=== PATIENT | male | born 1995 | race American Indian/Alaskan Native ===

== ENCOUNTER 2021-08-17 14:08 | Emergency (ER) | payer MEDICAID ==
--- NOTE | 2021-08-17 15:16 | Event Note ---
ED Screening Note Date of service: 08/17/21 Time: 15:12 ED Screening Note: 26-year-old male with a past medical history of schizophrenia was brought to the ER today by mom with concern that patient may be a harm to himself. Mom states that patient covered his entire body yesterday with [place] ago, then added brown sugar to his body and then sprayed his body metallic gold with a spray paint and then this morning she states that he was asking her to bring home brown spray paint so he could spread his body again. Also mom states that in the past 2 days patient has been adding bleach to his food which was witnessed by his sister and she states that over the past 4 months he has also been eating handfuls of baking soda. He states that patient has been having auditory hallucinations. She denies any SI. She states that patient has not been compliant with his psych meds. She states that he was on Invega IM, and the last time he had it was April 2021. She states that they recently moved to the area, and patient psychiatrist was in [place] and she states that it was difficult getting patient to the office for visits, and getting his meds and patient refused to do the virtual visits. Patient currently awake alert oriented x3, but he is delusional with loose associations. He does have global pain throughout his body especially his right shoulder, and what appears to be dried glue also on his body. This initial assessment/diagnostic orders/clinical plan/treatment(s) is/are subject to change based on patients health status, clinical progression and re- assessment by fellow clinical providers in the ED. Further treatment and workup at subsequent clinical providers discretion. Patient/guardian urged not to elope from the ED as their condition may be serious if not clinically assessed and managed. Initial orders include: Psych orders
[2021-08-17 16:27] LABS: Basophils % (Auto) 0.5 % (0.0-1.8); Eosinophils # (Auto) 0.1 K/mm3 (0.0-0.4); Hematocrit 42.6 % (35.5-45.6); Lymphocytes # (Auto) 2.3 K/mm3 (1.2-5.4); Lymphocytes % (Auto) 30.4 % (13.4-35.0); Mean Corpuscular HGB Conc 33 % (32-34); Mean Corpuscular Volume 89 fl (84-94); Monocytes # (Auto) 0.5 K/mm3 (0.0-0.8); Platelet Count 354 K/mm3 (140-440); Red Blood Count 4.79 M/mm3 (3.65-5.03)
[2021-08-17 16:45] LABS: BUN/Creatinine Ratio 19; Blood Urea Nitrogen 15 mg/dL (9-20); Calcium 9.8 mg/dL (8.4-10.2); Hemolysis Index 34
--- NOTE | 2021-08-17 19:20 | Emergency Department Report ---
ED Psych HPI - General Chief Complaint: Psych Stated Complaint: MIXED CHEMICALS STUCK ON SKIN/INGESTED BLEACH Time Seen by Provider: 08/17/21 15:49 Source: patient Mode of arrival: Ambulatory - History of Present Illness Initial Comments: Patient is a 26-year-old [place] male with a history of schizophrenia who is presenting with some abnormal behaviors last several days. Patient is responded auditory hallucinations. Mother states that he has covered several areas of his body with gorilla glue. Patient then sprayed pain in his right shoulder and upper arm with gold spray paint. He has been mixing bleach into his food. Mother is fearful that the patient is having a mental health crisis. Patient denies alcohol but states he is using marijuana and would like to stop. Patient is given no other rationale for putting the glue or paint on his body. - Related Data Home Medications Medication Instructions Recorded Confirmed Last Taken No Known Home Medications [No 08/18/21 08/18/21 Unknown Reported Home Medications] Allergies Allergy/AdvReac Type Severity Reaction Status Date / Time No Known Allergies Allergy Verified 08/17/21 14:20 ED Review of Systems ROS: Stated complaint: MIXED CHEMICALS STUCK ON SKIN/INGESTED BLEACH Other details as noted in HPI Comment: All other systems reviewed and negative ED Past Medical Hx - Past Medical History Previous Medical History?: Yes Hx Psychiatric Treatment: Yes (schizophrenia) - Surgical History Past Surgical History?: No - Medications Home Medications: Home Medications Medication Instructions Recorded Confirmed Last Taken Type No Known Home Medications [No 08/18/21 08/18/21 Unknown History Reported Home Medications] ED Physical Exam - General Limitations: No Limitations General appearance: alert, in no apparent distress - Head Head exam: Present: atraumatic, normocephalic - Eye Eye exam: Present: normal appearance - ENT ENT exam: Present: mucous membranes moist - Neck Neck exam: Present: normal inspection - Respiratory Respiratory exam: Present: normal lung sounds bilaterally. Absent: respiratory distress, wheezes, rales, rhonchi - Cardiovascular Cardiovascular Exam: Present: regular rate, normal rhythm. Absent: systolic murmur, diastolic murmur, rubs, gallop - GI/Abdominal GI/Abdominal exam: Present: soft, normal bowel sounds - Rectal Rectal exam: Present: deferred - Extremities Exam Extremities exam: Present: normal inspection - Back Exam Back exam: Present: normal inspection - Neurological Exam Neurological exam: Present: alert, oriented X3 - Psychiatric Psychiatric exam: Present: normal affect, normal mood - Skin Skin exam: Present: warm, dry, intact, normal color, other (Patient is has multiple areas of the body bilateral extremities is face and neck that have dried glue. Most of these areas are already flaking off. On his right shoulder the patient has some keloids already the covering this area is large amount of glue and gold spray pain. ). Absent: rash ED Course Vital Signs 08/17/21 08/17/21 08/17/21 14:23 17:25 20:11 Temperature 98.5 F 98.6 F 98.7 F Pulse Rate 118 H 68 101 H Respiratory 16 20 18 Rate Blood Pressure 130/64 Blood Pressure 132/60 124/68 [Right] O2 Sat by Pulse 97 100 98 Oximetry 08/18/21 08/18/21 08/18/21 01:45 02:07 08:36 Temperature 97.2 F L 97.7 F Pulse Rate 90 74 Respiratory 17 17 20 Rate Blood Pressure Blood Pressure 102/61 132/80 [Right] O2 Sat by Pulse 98 98 100 Oximetry 08/18/21 08/18/21 08/19/21 08:51 21:23 08:00 Temperature 98.3 F Pulse Rate 63 Respiratory 16 Rate Blood Pressure Blood Pressure 137/91 [Right] O2 Sat by Pulse 100 100 98 Oximetry 08/19/21 08/19/21 08/19/21 08:14 15:25 20:58 Temperature 98 F 97.4 F L Pulse Rate 68 98 H Respiratory 20 18 Rate Blood Pressure Blood Pressure 142/90 133/76 [Right] O2 Sat by Pulse 98 98 98 Oximetry ED Medical Decision Making - Lab Data Result diagrams: 08/17/21 15:51 08/17/21 15:51 Lab Results 08/17/21 08/17/21 08/17/21 Range/Units 15:51 15:51 15:51 WBC 7.6 (4.5-11.0) K/mm3 RBC 4.79 (3.65-5.03) M/mm3 Hgb 14.0 (11.8-15.2) gm/dl Hct 42.6 (35.5-45.6) % MCV 89 (84-94) fl MCH 29 (28-32) pg MCHC 33 (32-34) % RDW 14.0 (13.2-15.2) % Plt Count 354 (140-440) K/mm3 Lymph % (Auto) 30.4 (13.4-35.0) % Emmet % (Auto) 6.0 (0.0-7.3) % Eos % (Auto) 1.0 (0.0-4.3) % Baso % (Auto) 0.5 (0.0-1.8) % Lymph # (Auto) 2.3 (1.2-5.4) K/mm3 Emmet # (Auto) 0.5 (0.0-0.8) K/mm3 Eos # (Auto) 0.1 (0.0-0.4) K/mm3 Baso # (Auto) 0.0 (0.0-0.1) K/mm3 Seg Neutrophils % 62.1 (40.0-70.0) % Seg Neutrophils # 4.7 (1.8-7.7) K/mm3 Sodium 139 (137-145) mmol/L Potassium 4.0 (3.6-5.0) mmol/L Chloride 104.4 (98-107) mmol/L Carbon Dioxide 21 L (22-30) mmol/L Anion Gap 18 mmol/L BUN 15 (9-20) mg/dL Creatinine 0.8 (0.8-1.3) mg/dL Estimated GFR > 60 ml/min BUN/Creatinine Ratio 19 % Glucose 149 H (75-100) mg/dL Calcium 9.8 (8.4-10.2) mg/dL Salicylates < 0.3 L (2.8-20.0) mg/dL Acetaminophen (10.0-30.0) ug/mL Plasma/Serum Alcohol (0-0.07) % 08/17/21 08/17/21 Range/Units 15:51 15:51 WBC (4.5-11.0) K/mm3 RBC (3.65-5.03) M/mm3 Hgb (11.8-15.2) gm/dl Hct (35.5-45.6) % MCV (84-94) fl MCH (28-32) pg MCHC (32-34) % RDW (13.2-15.2) % Plt Count (140-440) K/mm3 Lymph % (Auto) (13.4-35.0) % Emmet % (Auto) (0.0-7.3) % Eos % (Auto) (0.0-4.3) % Baso % (Auto) (0.0-1.8) % Lymph # (Auto) (1.2-5.4) K/mm3 Emmet # (Auto) (0.0-0.8) K/mm3 Eos # (Auto) (0.0-0.4) K/mm3 Baso # (Auto) (0.0-0.1) K/mm3 Seg Neutrophils % (40.0-70.0) % Seg Neutrophils # (1.8-7.7) K/mm3 Sodium (137-145) mmol/L Potassium (3.6-5.0) mmol/L Chloride (98-107) mmol/L Carbon Dioxide (22-30) mmol/L Anion Gap mmol/L BUN (9-20) mg/dL Creatinine (0.8-1.3) mg/dL Estimated GFR ml/min BUN/Creatinine Ratio % Glucose (75-100) mg/dL Calcium (8.4-10.2) mg/dL Salicylates (2.8-20.0) mg/dL Acetaminophen 5.0 L (10.0-30.0) ug/mL Plasma/Serum Alcohol < 0.01 (0-0.07) % - Medical Decision Making Patient is medically cleared at this time. The glue appears to be loosening already especially on the edges of the area this painted. Is likely will fall off in the next several days without any other significant issue. Patient waiting for mental health evaluation Critical care attestation.: If time is entered above; I have spent that time in minutes in the direct care of this critically ill patient, excluding procedure time. ED Disposition Clinical Impression: Schizophrenia, Self mutilating behavior Disposition: [address] [place] [address] Is pt being admited?: No Does the pt Need Aspirin: No Condition: Stable Referrals: MICHAEL MOLINA MD [Primary Care Provider] - 3-5 Days
[2021-08-17 21:13] LABS: Bilirubin,Urine NEG (Negative); Blood,Urine NEG (Negative); Color,Urine Yellow (Yellow); Mucus,Urine FEW /HPF; Protein,Urine <15 mg/dL mg/dL (Negative)
[2021-08-17 22:07] LABS: Amphetamine Screen,Urine Negative; Benzodiazepines Screen,Urine Negative; Cocaine Screen,Urine Negative; Methadone Screen,Urine Negative; Opiate Screen,Urine Negative
[2021-08-17 22:22] LABS: Cannabinoid Screen,Urine Positive
--- NOTE | 2021-08-18 10:41 | Consultation ---
History of Present Illness - Reason for Consult Consult date: 08/18/21 Reason for consult: Mental health evaluation - History of Present Psychiatric Illness Per ED Note: 26-year-old male with a past medical history of schizophrenia was brought to the ER today by mom with concern that patient may be a harm to himself. Mom states that patient covered his entire body yesterday with [place] ago, then added brown sugar to his body and then sprayed his body metallic gold with a spray paint and then this morning she states that he was asking her to bring home brown spray paint so he could spread his body again. Also mom states that in the past 2 days patient has been adding bleach to his food which was witnessed by his sister and she states that over the past 4 months he has also been eating handfuls of baking soda. He states that patient has been having auditory hallucinations. She denies any SI. She states that patient has not been compliant with his psych meds. She states that he was on Invega IM, and the last time he had it was April 2021. She states that they recently moved to the area, and patient psychiatrist was in [place] and she states that it was difficult getting patient to the office for visits, and getting his meds and patient refused to do the virtual visits. The patient was heard in the shower. He presents with some confusion, when asked about psychotropic medications he was on he states "baking soda." PAST PSYCHIATRIC HISTORY Diagnoses: schizophrenia Suicide attempts or Self-harm behavior: Unknown Prior psychiatric hospitalizations: Unknown Substance Abuse history: Unknown Previous psychiatric medications tried: Unknown Outpatient treatment: Unknown PAST MEDICAL HISTORY: Chronic pain Family Psychiatric History: None reported or documented SOCIAL HISTORY Marital Status: Unknown Living Arrangements: Lives with mother Employment Status: disabled Access to guns/weapons: None reported Education: Unknown History of Abuse: None reported Legal History: Ub[employer] REVIEW OF SYSTEMS Constitutional: Negative for weight loss ENT: Negative for stridor Respiratory: Negative for cough or hemoptysis All other systems reviewed and are negative MENTAL STATUS EXAMINATION General Appearance: Dressed appropriately. Behavior: Confused Mood: Affect: Congruent with stated mood Speech: Normal tone, and pace Thought Process: Suicidal Ideation: Homicidal Ideation: Hallucinations: Delusions: Insight and Judgment: Limited Memory/Cognition: Limited ASSESSMENT Schizophrenia Treatment Plan Depakote 250mg po BID Zyprexa 10mg qhs continue 1013 Trazodone 50mg po qhs The patient to comply with previously prescribed medications Risks, benefits and alternatives of medications discussed with the patient, questions answered and consent obtained from patient. PSYCHOTHERAPY: Supportive psychotherapy provided MEDICAL: Per primary team DELIRIUM PRECAUTIONS: Please re-orient patient frequently, keep lights on during the day, and minimize benzodiazepines and opiates as these medications could worsen patient's confusion. CLINICAL NURSE SPECIALIST: Defer to primary DISPOSITION: Recommend acute inpatient psychiatric hospitalization at this time. FOLLOW-UP: Will follow. Case staffed with Dr. Arteaga Please contact with any questions and/or concerns. Thank you for the consult. Medications and Allergies Allergies Allergy/AdvReac Type Severity Reaction Status Date / Time No Known Allergies Allergy Verified 08/17/21 14:20 Home Medications Medication Instructions Recorded Confirmed Last Taken Type No Known Home Medications [No 08/18/21 08/18/21 Unknown History Reported Home Medications] Mental Status Exam - Vital signs Last Vital Signs Temp 97.7 F 08/18/21 08:36 Pulse 74 08/18/21 08:36 Resp 20 08/18/21 08:36 BP 132/80 08/18/21 08:36 Pulse Ox 100 08/18/21 08:51 Results Result Diagrams: 08/17/21 15:51 08/17/21 15:51 Abnormal lab results 08/17/21 08/17/21 08/17/21 Range/Units 15:51 15:51 15:51 Carbon Dioxide 21 L (22-30) mmol/L Glucose 149 H (75-100) mg/dL Salicylates < 0.3 L (2.8-20.0) mg/dL Acetaminophen 5.0 L (10.0-30.0) ug/mL All other labs normal.
--- NOTE | 2021-08-18 11:32 | Emergency Department Report ---
Blank Doc - Documentation Documentation: Patient presented with bizarre behavior including eating baking soda, drinking bleach, and covering himself with superglue. He had been seen by psychiatric services. It was felt that he was a substantial risk of self-harm with inability to care for himself. He was maintained in the emergency department. We are seeking a psychiatric placement. He has been medically cleared.
[2021-08-18] MEDS: DIVALPROEX DR 250 MG TAB PO SCH ×2 (12:46→22:06)
[2021-08-19] MEDS: DIVALPROEX DR 250 MG TAB PO SCH ×2 (09:56→22:23)
--- NOTE | 2021-08-19 12:36 | Emergency Department Report ---
Blank Doc - Documentation Documentation: Apparently, the receiving facility did not accept the patient last night. They now want photographs of the glue on the skin to determine whether they will have to take the patient to surgery. It is completely unlikely that this will require surgical debridement. The glue will wear off over time. Patient does not have any particulate matter involving his airway or causing any other compromise. We are still awaiting psychiatric transfer to the receiving facility.
[2021-08-19 20:59] VITALS: BP 133/76
== END 2021-08-20 04:58 ==
LOC: ED 14:08
DX: R46.89 Other symptoms and signs involving appearance and behavior (principal); R44.0 Auditory hallucinations; Z20.822 Contact with and (suspected) exposure to COVID-19
CPT/HCPCS: 36415; 80048; 80307; 81001; 85025; 99285; U0003; 80320; 99284; G0480